=== PATIENT | female | born 1965 | race Caucasian/White ===

== ENCOUNTER 2017-10-24 15:41 | Emergency (ER) | payer OTHER ==
--- NOTE | 2017-10-24 16:01 | EDPHY ---
H & P Stated Complaint: r back and generalized abd pain HPI/ROS: CHIEF COMPLAINT: Right back and abdominal pain HISTORY OF PRESENT ILLNESS: The patient is an anticoagulated 51 y/o female with a history of a brain aneurysm s/p coiling with current anticoagulation on aspirin and Plavix, appendectomy, and hysterectomy, complaining of sudden onset right back pain that is radiating to her abdomen; onset at 15:00, 1 hour ago. This pain began while she was working at her desk. She 1st noted pain in the right flank region followed by diffuse lower abdominal pain that is now localized in the right lower abdomen. The pain is severe, a constant aching sensation. Her last bowel movement was this morning. She has not had diarrhea or constipation. Last PO was 15:00, 1 hour ago. Denies history of kidney stones. She has not had hematuria, dysuria, urgency, or frequency. Denies blood in stool, urinary complaints, fever, chest pain, shortness of breath, midline back pain, paresthesias or other pertinent symptoms. REVIEW OF SYSTEMS: A ten point review of systems was performed and is negative with the exception of the items mentioned in the HPI. Past medical history: 1. Brain aneurysm Past surgical history: 1. Hysterectomy, cervix and ovaries retained 2. Appendectomy 3. Breast augmentation 4. Status post coiling of brain aneurysm Family history: Denies Social history: at bedside, lives in [place], former smoker General Appearance: Alert. Uncomfortable lying in bed. Vital signs reviewed. Blood pressure 123/94. Afebrile. Eyes: Pupils equal and round, no conjunctival injection, no discharge. Anicteric. ENT, Mouth: Mucous membranes are moist, no oropharyngeal erythema or edema. Neck: No lymphadenopathy, supple. Respiratory: Lungs are clear to auscultation; no wheezes, rales, or rhonchi. Cardiovascular: Regular rate and rhythm; no murmur, rub, or gallop. Gastrointestinal: RLQ tenderness with guarding. Abdomen is obese, soft, no appreciable masses or organomegaly, bowel sounds normal. Skin: Warm and dry, no rashes on exposed skin, normal color. Back: Nontender to palpation over the thoracolumbar spine. No CVAT. Extremities: No lower extremity edema, no calf tenderness or swelling. Neurological: Alert and oriented. Moving all four extremities easily and equally. Psychiatric: Normal affect. - Personal History LMP (Females 10-55): Hysterectomy Current Tetanus/Diphtheria Vaccine: Unsure - Medical/Surgical History Hx Asthma: No Hx Chronic Respiratory Disease: No Hx Diabetes: No Hx Cardiac Disease: No Hx Renal Disease: No Hx Cirrhosis: No Hx Alcoholism: No Hx HIV/AIDS: No Hx Splenectomy or Spleen Trauma: No Other PMH: aneurysm/hysterectomy - Social History Smoking Status: Former smoker Constitutional: Initial Vital Signs Temperature (C) 36.4 C 10/24/17 15:45 Heart Rate 77 10/24/17 15:45 Respiratory Rate 18 10/24/17 15:45 Blood Pressure 123/94 H 10/24/17 15:45 O2 Sat (%) 98 10/24/17 15:45 O2 Delivery Mode Room Air O2 (L/minute) 2 Allergies/Adverse Reactions: codeine Allergy (Verified 10/24/17 15:44) Home Medications: Medication Instructions Recorded ASPIRIN 10/24/17 Lisinopril 10/24/17 Ondansetron Odt [Zofran Odt 4 mg 4 mg PO Q4 PRN #20 tab 10/24/17 (*)] Ondansetron Odt [Zofran Odt 4 mg 4 mg PO Q4 PRN #10 tab 10/24/17 (RX)] Plavix 10/24/17 oxyCODONE HCL/ACETAMINOPHEN 1 - 2 each PO Q6 PRN #20 tablet 10/24/17 [Percocet 5-325 mg Tablet] Medical Decision Making - Diagnostics Imaging: Discussed imaging studies w/ terrazzo mechanic helper Radiologist, I viewed and interpreted images myself ED Course/Re-evaluation: The patient is an anticoagulated 51 y/o female with a history of an appendectomy , presenting with right back and abdominal pain, sudden onset at 15:00, 1 hour ago. My initial suspicion was for kidney stone. Abdominopelvic CT ordered. 100mcg IV Fentanyl, 4mg IV Zofran, and 1L IV NS administered. 1647: Spoke with radiologist regarding patient's AP CT, there are no kidney or ureteral stones visualized. There is an enlarged right ovary with what appears to be hemorrhagic cyst rupture. Pelvic US ordered to further characterize. Fatty liver and liver lesions also noted. 1657: Reassessed patient and discussed CT findings. She is comfortable with plan for US. She continues with right lower quadrant tenderness and guarding. She also has some suprapubic and left lower quadrant tenderness that is not as severe as the pain she is experiencing on her right. 1718: 6mg IV Morphine administered. 1740: Spoke with radiologist regarding US; the ovaries cannot be visualized. Will try trans abdominal ultrasound. POOLROOM TABLE ATTENDANT will be consulted. 1755: Spoke with radiologist, there is a probable ruptured right ovarian cyst. No torsion identified. POOLROOM TABLE ATTENDANT consult pending. 1757: Reassessed patient and discussed US findings. Her pain was briefly relieved after Morphine. On exam she has continued right lower quadrant tenderness, no guarding at this time Additional 4mg IV Morphine and 4mg IV Zofran administered. 2020: Consulted with Dr. Dillard regarding this patient. He has evaluated her in the emergency department. He has reviewed with her the options for treatment of what is a presumed ruptured ovarian cyst. She has been offered hospitalization for observation. He discussed a surgical option with her also. She feels comfortable returning home at this point. She plans to follow up with her [place] physician and Dr. Dillard will be contacting that physician Patient is safe to go home with pain management. Close follow-up is advised, as she is anticoagulated and this appears to be a hemorrhagic cyst. She is hemodynamically stable in the emergency department. Her pain is improved. On examination she has no peritoneal signs. She continues with right lower quadrant tenderness. She is given a copy of her radiographic studies. She has been informed about the liver abnormalities and understands that further evaluation is recommended. 8: Reassessed patient and discussed plan for follow up with her POOLROOM TABLE ATTENDANT in the next week. Return precautions provided; patient is comfortable with this plan. Differential Diagnosis: I considered a differential diagnosis that includes but is not limited to ruptured ovarian cyst, ovarian torsion, bowel obstruction, ureterolithiasis, urinary tract infection, and pyelonephritis. - Data Points Laboratory Results: Laboratory Results 10/24/17 13:44 10/24/17 13:44 Medications Given: Discontinued Medications Fentanyl (Sublimaze) 100 mcg IVP EDNOW ONE Stop: 10/24/17 16:53 Last Admin: 10/24/17 16:50 Dose: 100 mcg Sodium Chloride (Ns) 1,000 mls @ 0 mls/hr IV ONCE ONE PRN Reason: Wide Open Stop: 10/24/17 16:52 Last Admin: 10/24/17 16:35 Dose: 1,000 mls Morphine Sulfate (Morphine) 6 mg IVP EDNOW ONE Stop: 10/24/17 17:18 Last Admin: 10/24/17 17:27 Dose: 6 mg Morphine Sulfate (Morphine) 4 mg IVP EDNOW ONE Stop: 10/24/17 18:03 Last Admin: 10/24/17 18:17 Dose: 4 mg Ondansetron HCl (Zofran) 4 mg IVP EDNOW ONE Stop: 10/24/17 16:52 Last Admin: 10/24/17 16:30 Dose: 4 mg Ondansetron HCl (Zofran) 4 mg IVP EDNOW ONE Stop: 10/24/17 18:25 Last Admin: 10/24/17 18:25 Dose: 4 mg Ondansetron HCl (Zofran Odt 4 Mg Prepack#2) 1 btl TAKEHOME EDNOW ONE Stop: 10/24/17 20:56 Last Admin: 10/24/17 20:59 Dose: 1 btl Ondansetron HCl (Zofran Odt) 4 mg PO EDNOW ONE Stop: 10/24/17 21:03 Last Admin: 10/24/17 21:03 Dose: 4 mg Oxycodone/Acetaminophen (Percocet 5/325mg Prepack#4) 1 btl TAKEHOME EDNOW ONE Stop: 10/24/17 20:55 Last Admin: 10/24/17 20:59 Dose: 1 btl Departure - Departure Disposition: Home, Routine, Self-Care Clinical Impression: Ovarian cyst rupture Ovarian cyst Qualifiers: Laterality: right Qualified Code(s): N83.201 - Unspecified ovarian cyst, right side Condition: Good Instructions: Oxycodone/Acetaminophen (By mouth), Ondansetron (By mouth), Ovarian Cyst (ED), Ruptured Ovarian Cyst (ED) Additional Instructions: Take Percocet as prescribed. Follow up with your POOLROOM TABLE ATTENDANT in the next week. Return to the ED if you experience chest pain, shortness of breath, fevers, urinary or bowel complaints or other worsening of your symptoms. Referrals: KAREN URBINA [Other] - As per Instructions Mukul Dillard MD [Medical Doctor] - As per Instructions Prescriptions: Ondansetron Odt [Zofran Odt 4 mg (RX)] 4 mg PO Q4 PRN #10 tab PRN Reason: nausea Ondansetron Odt [Zofran Odt 4 mg (*)] 4 mg PO Q4 PRN #20 tab PRN Reason: Nausea/Vomiting, Use 1st oxyCODONE HCL/ACETAMINOPHEN [Percocet 5-325 mg Tablet] 1 - 2 each PO Q6 PRN #20 tablet PRN Reason: Pain, Breakthrough Report Scribed for: Laura Aldana Report Scribed by: Juana Rodríguez Date of Report: 10/24/17 Time of Report: 16:13 Physician Review and Approval Statement: 10/24/17 16:01 Portions of this note were transcribed by the medical dir. I, Dr. Laura Aldana, personally performed the history, physical exam, and medical decision- making; and confirmed the accuracy of the information in the transcribed note.
[2017-10-24] MEDS ORDERED: ONDANSETRON 4 MG/2 ML VIAL ONE (16:14)
[2017-10-24] MEDS ORDERED: fentaNYL 100 MCG/2 ML INJ ONE (16:14)
[2017-10-24 16:30] LABS: PLATELET COUNT 359 10^3/uL (150-400)
[2017-10-24] MEDS ORDERED: NS 1,000 ML IV ONE (16:51)
[2017-10-24] MEDS ORDERED: ONDANSETRON 4 MG/2 ML VIAL IVP ONE ×2 (16:51→18:24)
[2017-10-24] MEDS ORDERED: fentaNYL 100 MCG/2 ML INJ IVP ONE (16:52)
[2017-10-24 18:21] VITALS: RESP 16
[2017-10-24] MEDS ORDERED: ONDANSETRON 4MG PREPACK#2 BTL TAKEHOME ONE ×2 (20:44→20:55)
[2017-10-24] MEDS ORDERED: OXYCODONE/APAP 5/325MG PREPACK#4 BTL TAKEHOME ONE ×2 (20:44→20:54)
--- NOTE | 2017-10-24 20:46 | PDCONSULT ---
Tooling Mechanic Note: Subjective: 51 yo female presented to the ED earlier this afternoon with acute diffuse abdominal pain that began as she was sitting at work this afternoon. Pain began to bother her lower back, got up and was feeling nauseous then and was developing diffuse abdominal pain as she was getting ready to drive herself home. Ended up not feeling comfortable driving due to pain and called partner to come get her and bring her to ER for evaluation. She is s/p LS supracervical hysterectomy years ago with ovaries still in place. She has no h/ o ovarian cysts, ruptured or otherwise in the past. She is currently on ASA and Plavix therapy related to recent brain surgery/stent placement for cerebral aneurysm. Objective: Temp Pulse Resp BP Pulse Ox 36.4 C 87 16 135/69 H 95 10/24/17 15:45 10/24/17 18:00 10/24/17 18:00 10/24/17 18:00 10/24/17 18:00 O2 (L/minute) 2 10/24/17 13:44 10/24/17 13:44 Total Bilirubin 0.2 mg/dL (0.1-1.4) 10/24/17 13:44 Conjugated Bilirubin 0.2 mg/dL (0.0-0.5) 10/24/17 13:44 Unconjugated Bilirubin 0.0 mg/dL (0.0-1.1) 10/24/17 13:44 AST 20 IU/L (14-46) 10/24/17 13:44 ALT 33 IU/L (9-52) 10/24/17 13:44 WBC 13.66 10^3/uL (3.80-9.50) H 10/24/17 13:44 RBC 4.39 10^6/uL (4.18-5.33) 10/24/17 13:44 Hgb 12.5 g/dL (12.6-16.3) L 10/24/17 13:44 Hct 37.1 % (38.0-47.0) L 10/24/17 13:44 MCV 84.5 fL (81.5-99.8) 10/24/17 13:44 MCH 28.5 pg (27.9-34.1) 10/24/17 13:44 MCHC 33.7 g/dL (32.4-36.7) 10/24/17 13:44 RDW 13.7 % (11.5-15.2) 10/24/17 13:44 Plt Count 359 10^3/uL (150-400) 10/24/17 13:44 MPV 9.2 fL (8.7-11.7) 10/24/17 13:44 Neut % (Auto) 68.0 % (39.3-74.2) 10/24/17 13:44 Lymph % (Auto) 25.0 % (15.0-45.0) 10/24/17 13:44 Mcnairy % (Auto) 5.2 % (4.5-13.0) 10/24/17 13:44 Eos % (Auto) 0.9 % (0.6-7.6) 10/24/17 13:44 Baso % (Auto) 0.5 % (0.3-1.7) 10/24/17 13:44 Nucleat RBC Rel Count 0.0 % (0.0-0.2) 10/24/17 13:44 Absolute Neuts (auto) 9.28 10^3/uL (1.70-6.50) H 10/24/17 13:44 Absolute Lymphs (auto) 3.42 10^3/uL (1.00-3.00) H 10/24/17 13:44 Absolute Monos (auto) 0.71 10^3/uL (0.30-0.80) 10/24/17 13:44 Absolute Eos (auto) 0.12 10^3/uL (0.03-0.40) 10/24/17 13:44 Absolute Basos (auto) 0.07 10^3/uL (0.02-0.10) 10/24/17 13:44 Absolute Nucleated RBC 0.00 10^3/uL (0-0.01) 10/24/17 13:44 Immature Gran % 0.4 % (0.0-1.1) 10/24/17 13:44 Immature Gran # 0.06 10^3/uL (0.00-0.10) 10/24/17 13:44 Sodium 141 mEq/L (135-145) 10/24/17 13:44 Potassium 3.5 mEq/L (3.5-5.2) 10/24/17 13:44 Chloride 103 mEq/L (97-110) 10/24/17 13:44 Carbon Dioxide 23 mEq/l (22-31) 10/24/17 13:44 Anion Gap 15 mEq/L (8-16) 10/24/17 13:44 BUN 9 mg/dL (7-23) 10/24/17 13:44 Creatinine 0.9 mg/dL (0.6-1.0) 10/24/17 13:44 Estimated GFR > 60 10/24/17 13:44 Glucose 114 mg/dL (70-100) H 10/24/17 13:44 Calcium 9.4 mg/dL (8.5-10.4) 10/24/17 13:44 Total Bilirubin 0.2 mg/dL (0.1-1.4) 10/24/17 13:44 Conjugated Bilirubin 0.2 mg/dL (0.0-0.5) 10/24/17 13:44 Unconjugated Bilirubin 0.0 mg/dL (0.0-1.1) 10/24/17 13:44 AST 20 IU/L (14-46) 10/24/17 13:44 ALT 33 IU/L (9-52) 10/24/17 13:44 Alkaline Phosphatase 88 IU/L (38-126) 10/24/17 13:44 Total Protein 6.4 g/dL (6.3-8.2) 10/24/17 13:44 Albumin 3.9 g/dL (3.5-5.0) 10/24/17 13:44 Lipase 147 IU/L (23-300) 10/24/17 13:44 Exam: Gen: Alert, oriented, appears mildly uncomfortable. Belly is soft, minimally distended, non tender to palpation in upper quadrants and mildly tender in lower quadrants R>L. No rebound, mild guarding on the lower R side. Imaging: Imaging Impressions Abdomen/Pelvis CT 10/24/17 16:24 Impression: 1. No hydronephrosis or obstructing ureteral calculi. Left nephrolithiasis. 2. Hepatic steatosis, with several indeterminate dense lesions in the right lobe and adjacent to the gallbladder, which may represent focal fatty sparing or true liver lesions. Recommend MRI of the abdomen, without and with IV contrast, to optimally characterize. 3. Cholelithiasis. No CT features of acute cholecystitis. 4. Enlarged cystic right ovary may represent hemorrhagic cyst and may be etiology for pain and free fluid in the pelvis. The right ovary is enlarged for perimenopausal age. Recommend follow up to exclude underlying cystic neoplasm. Findings discussed with Emergency Department physician, Mayi Williamson M.D., on October 24, 2017 at 1650. Attention: This CT examination is specifically designed to evaluate patients who are clinically suspected of having acute obstructive uropathy. This examination does not use radiographic contrast, and as such, provides only a limited evaluation of the abdomen, pelvis, and retroperitoneum. If there is further clinical suspicion for pathological conditions other than obstructive uropathy, a complete CT evaluation of the abdomen and pelvis utilizing intravenous, oral, and rectal contrast should be considered. Pelvic/Renal Ultrasound 10/24/17 16:47 Impression: 1. Status post cervix-sparing hysterectomy. 2. Nonvisualization of the ovaries by transabdominal and endovaginal protocols. Regarding the previously-seen right adnexal complex cystic mass with an hematocrit level on the CT scan, gynecologic consultation and correlation with a serum CA-125 level is suggested. If there is further clinical concern at that point, contrast-enhanced MR imaging could be considered. 3. Small amount of free fluid in the pelvic cul-de-sac, which is nonspecific but could represent rupture of an ovarian cyst. Findings were discussed with MAYI WILLIAMSON MD at 17:37, on 10/24/2017. Assessment & Plan: Ruptured right hemorrhagic ovarian cyst vs Intermittent torsion of the right ovary I reviewed this patients presentation, labs, and imaging with Dr. Williamson. I had a long discussion with the patient and her partner about this pain and possible etiologies. She does have a ~4.5cm cyst on that right ovary - visualized on CT as well as US. Difficult for US techs to get adequate visualization of either ovary due to the patient's habitus. From those scans it looks like there is layering of material within the cyst to suggest hemorrhagic in nature, and then at least some (small currently) volume of likely blood/cyst fluid within the pelvis. This would suggest ruptured ovarian cyst as primary etiology -- her description of diffuse abdominal pain, bloating , and nausea also lines up with this. Discussed whether or not her ASA and Plavix would be contributing to that situation, which is possible, but unclear. They were able to get good visualization of patent flow to that right ovary, so they do feel that at least from that evaluation that the ovary is not torsed. Intermittent torsion is possible, and we discussed that entity. We discussed options for management going forward. If felt to be ruptured ovarian cyst I offered her inpatient observation with monitoring and pain control. I counseled her that if we're able to control her pain and nausea that it would be reasonable for her to go home with oral medications as long as we had a plan for close outpatient follow-up with imaging at the end of this week to evaluate that cyst and look for signs of further blood accumulation. I offered to see her in my clinic at [facility] but she has [employer] insurance, so she will need to touch base with her PCP PIETRO tomorrow potentially for referral to [facility]. If that will be the plan I did give her precautions for how/when to return for evaluation if uncontrolled pain or s/sx of ongoing blood loss. We also discussed the idea of going to the OR tonight for (at least) diagnostic laparoscopy and potentially treatment of ovarian cyst and/or torsion. If torsion were the etiology we would be able to address that intraoperatively, if cyst rupture then could address that cyst and what seems like very small hemoperitoneum. That surgery does come with risk given that she's currently on dual antiplatelet therapy. We discussed risks/benefits of either course - observation vs OR, and she would prefer observation with close outpatient surveillance, and I think that is a reasonable plan. I will try to fax this note PIETRO to her primary care provider. Scripts given for Percocet and Zofran. She needs to avoid NSAIDS due to her ASA and Plavix therapy. Mukul Dillard MD OBGYN
[2017-10-24] MEDS ORDERED: ONDANSETRON DISINTEGRATING 4 MG TAB ONE (21:01)
[2017-10-24] MEDS ORDERED: ONDANSETRON DISINTEGRATING 4 MG TAB PO ONE (21:02)
[2017-10-24 21:10] VITALS: BP 121/73; PULSE 80; TEMP 98.2; O2SAT 92
== END 2017-10-24 21:10 | disposition home or self-care (01) ==
DX: N83.201 Unspecified ovarian cyst, right side (principal); Z79.82 Long term (current) use of aspirin; Z87.891 Personal history of nicotine dependence; Z90.49 Acquired absence of other specified parts of digestive tract
CPT/HCPCS: 96374; J2405; J3010

== ENCOUNTER 2017-11-01 14:10 | Observation (INO) | payer OTHER ==
--- NOTE | 2017-11-01 14:21 | EDPHY ---
HPI/HX/ROS/PE/MDM Narrative: CHIEF COMPLAINT: Lip swelling, on Lisinopril HISTORY OF PRESENT ILLNESS: The patient is an anticoagulated (Plavix) 51 y/o female, currently on Lisinopril with a history of a cerebral aneurysm complaining of a worsening swollen upper lip since 11:30, 3 hours ago. She took 50mg Benadryl without relief of her symptoms. Admits to eating strawberries, kiwis, and a peanut butter sandwich today; she has not had problems with these foods before. 4 years ago she had similar symptoms, but did not receive medical treatment at this time; at this time she was also on Lisinopril. Her symptoms today have a faster onset than 4 years ago. She is currently itchy all over. Denies itching or tingling in throat, rash, or shortness of breath. No fever, chills, chest pain, shortness of breath, palpitations, vomiting, diarrhea, urinary complaints, headache, lightheadedness. REVIEW OF SYSTEMS: Aside from elements discussed in the HPI, a comprehensive 10-point review of systems was reviewed and is negative. PAST MEDICAL HISTORY: Hysterectomy, appendectomy, breast augmentation, post- coiling of brain aneurysm, ovarian cyst SOCIAL HISTORY: Lives in [place], former smoker, at bedside VITAL SIGNS: BP: 159/95, HR: 105, others reviewed by me GENERAL: Well-developed, well-nourished, resting comfortably in no respiratory distress. HEENT: Atraumatic. Eyes: No icterus, no injection. Mouth: Swelling of upper lip , primarily on the left side with minimal extension across the midline. No tongue, lower lip, or uvula swelling. Moist mucous membranes. No erythema or lesions. Neck: supple with no adenopathy. No stridor. LUNGS: Clear to auscultation bilaterally, no wheezes, rhonchi or rales. CARDIAC: Regular rate and rhythm, no rubs, murmurs or gallops. ABDOMEN: Soft, nontender, nondistended, bowel sounds normal. BACK: No CVA tenderness. EXTREMITIES: No trauma. No edema. Range of motion is normal throughout. NEURO: Alert and oriented, grossly nonfocal. SKIN: Warm and dry, no rash. No urticaria. PSYCHIATRIC: Normal mentation, no agitation. Portions of this note were transcribed by a medical director occupational health. I personally performed a history, physical exam, medical decision making, and confirmed accuracy of information the transcribed note. ED Course: The patient is an anticoagulated (Plavix) 51 y/o female, currently on Lisinopril (1 year) with a history of a cerebral aneurysm presenting with a worsening swollen upper lip since 11:30, 3 hours ago. On exam, the swelling of her upper lip is primarily on the left side and with some extension across midline. No tongue, lower lip, or uvula swelling. No shortness of breath or rash. 125mg IV Solu-medrol and 50mg IV Zantac administered. She has taken benadryl at home. 1545: Reassessed patient, the edema is worse and is now more across the midline and more on the right. 0.3mg IM Epinephrine administered. 1738: Reassessed patient, she is not feeling improved after epinephrine. Her swelling is now across the entire upper lip. I recommend admisstion to hospital until her angioedema is resolving instead of worsening. Patient understand and is in agreement. 1750: Spoke with hospitalist service, Dr. Gonzalez accepts admission of this patient. MDM: Diff dx considered included angioedema associated with deven inhibitors, allergic reaction, food allergy, hereditary angioedema, local reaction. - Data Points Medications Given: Discontinued Medications Aspirin Buffered (Aspirin Ec) 325 mg PO DAILY COUNT INCLUDES THE [facility] Stop: 05/01/18 09:44 Last Admin: 11/02/17 09:46 Dose: 325 mg Clopidogrel Bisulfate (Plavix) 75 mg PO DAILY [facility] Stop: 05/01/18 09:44 Last Admin: 11/02/17 09:46 Dose: 75 mg Diphenhydramine HCl (Benadryl Injection) 25 mg IVP Q6HRS [facility] Stop: 05/01/18 00:00 Last Admin: 11/02/17 05:15 Dose: 25 mg Epinephrine HCl (Epinephrine) 0.3 mg IM EDNOW ONE Stop: 11/01/17 15:46 Last Admin: 11/01/17 16:10 Dose: 0.3 mg Methylprednisolone Sodium Succinate (Solu-Medrol) 125 mg IVP EDNOW ONE Stop: 11/01/17 14:36 Last Admin: 11/01/17 14:42 Dose: 125 mg Methylprednisolone Sodium Succinate (Solu-Medrol) 60 mg IVP Q6HRS COUNT INCLUDES THE [facility] Stop: 05/01/18 00:00 Last Admin: 11/02/17 05:15 Dose: 60 mg Ranitidine HCl (Zantac) 50 mg IVP EDNOW ONE Stop: 11/01/17 14:36 Last Admin: 11/01/17 14:42 Dose: 50 mg General Time Seen by Provider: 11/01/17 14:19 Initial Vital Signs: Initial Vital Signs Temperature (C) 36.6 C 11/01/17 14:14 Heart Rate 105 H 11/01/17 14:14 Respiratory Rate 16 11/01/17 14:14 Blood Pressure 159/95 H 11/01/17 14:14 O2 Sat (%) 97 11/01/17 14:14 O2 Delivery Mode Room Air Allergies/Adverse Reactions: hydrocodone [From Vicodin] Allergy (Intermediate, Verified 11/01/17 18:33) Swelling/neck,face,throat lisinopril Allergy (Unknown, Verified 11/02/17 10:55) POSSABLE ANGIOEDEMA Home Medications: Medication Instructions Recorded Aspirin EC [Aspirin EC 325 mg (*)] 325 mg PO DAILY 10/24/17 Clopidogrel Bisulfate [Plavix (*)] 75 mg PO DAILY 10/24/17 diphenhydrAMINE [Benadryl 25 MG 50 mg PO DAILY PRN 11/01/17 (*)] Departure - Departure Disposition: [facility] Inpatient Acute Clinical Impression: Angioedema Qualifiers: Encounter type: initial encounter Qualified Code(s): T78.3XXA - Angioneurotic edema, initial encounter Condition: Fair Report Scribed for: Sheree Dailey Report Scribed by: Juana Rodríguez Date of Report: 11/01/17 Time of Report: 14:21
[2017-11-01] MEDS ORDERED: methylPREDNISolone SOD SUCC 125 MG/2 ML VIAL IVP ONE (14:35)
[2017-11-01] MEDS ORDERED: RANITIDINE 50 MG/2 ML VIAL IVP ONE (14:35)
[2017-11-01 18:25] LABS: PLATELET COUNT 471 10^3/uL (150-400)
[2017-11-01] MEDS ORDERED: ONDANSETRON 4 MG/2 ML VIAL IVP PRN (19:33)
[2017-11-01] MEDS ORDERED: ACETAMINOPHEN 325 MG TAB PO PRN (19:33)
[2017-11-01] MEDS ORDERED: ONDANSETRON DISINTEGRATING 4 MG TAB PO PRN (19:33)
[2017-11-01] MEDS ORDERED: ALBUTEROL 3 ML DEYVIAL IH PRN (19:33)
--- NOTE | 2017-11-01 20:16 | PDGENHP ---
History and Physical - Chief Complaint lip swelling - History of Present Illness 51 yo female with hx of HTN who is on Lisinopril started to have left sided lip swelling around 11 a.m as well as generalized itching this morning while at work. She had eaten strawberry and [employer] that morning but has eaten them before w/o problem. She took Benadryl w/o improvement and therefore presented to the E.D. where she was given Epi, IV steroids, H1 and H2 blockers. Her swelling actually became worse in the E.D. and per report started to cross the midline. There were no resp sx's. There was no pharynx or tongue involvement. She had a similar episode several years ago and she was on lisinopril at that time which was stopped as a result. This was eventually restarted about a year ago and she has done well until this event. No fever, chills, chest pain, shortness of breath, palpitations, vomiting, diarrhea, urinary complaints, headache, lightheadedness. PAST MEDICAL HISTORY: Hysterectomy, appendectomy, breast augmentation, post- coiling of brain aneurysm, ovarian cyst SOCIAL HISTORY: Lives in [place], former smoker, at bedside FMx: [place] History Information - Allergies/Home Medication List Allergies/Adverse Reactions: hydrocodone [From Vicodin] Allergy (Intermediate, Verified 11/01/17 18:33) Swelling/neck,face,throat Home Medications: Aspirin EC [Aspirin EC 325 mg (*)] 325 mg PO DAILY 10/24/17 [Last Taken 08:00] Clopidogrel Bisulfate [Plavix (*)] 75 mg PO DAILY 10/24/17 [Last Taken 11/01/17 08:00] Lisinopril/Hctz 10/12.5 mg [Zestoretic/Prinzide 10/12.5MG (*)] 1 ea PO DAILY [Last Taken 11/01/17 08:00] diphenhydrAMINE [Benadryl 25 MG (*)] 50 mg PO DAILY PRN 11/01/17 [Last Taken 10/18 12:00] I have personally reviewed and updated: medical history, social history - Social History Smoking Status: Former smoker Review of Systems Review of Systems: ROS: 10pt was reviewed & negative except for what was stated in HPI & below Physical Exam Physical Exam: Temp Pulse Resp BP Pulse Ox 37 C 84 16 112/78 91 L 11/01/17 18:10 11/01/17 19:45 11/01/17 19:45 11/01/17 19:45 11/01/17 19:45 Constitutional: no apparent distress, appears nourished Eyes: PERRL, EOMI Ears, Nose, Mouth, Throat: moist mucous membranes, other (there is swelling around the left lower lip. No pharynx or throat involvement) Cardiovascular: regular rate and rhythym, No edema Respiratory: no respiratory distress, no rales or rhonchi Gastrointestinal: normoactive bowel sounds, No distension Skin: warm Musculoskeletal: full muscle strength Neurologic: AAOx3 Psychiatric: interacting appropriately, not anxious, not encephalopathic, thought process linear Lymph, Heme, Immunologic: No petechiae Lab Data & Imaging Review 11/01/17 18:15 11/01/17 18:15 WBC 14.93 10^3/uL (3.80-9.50) H 11/01/17 18:15 RBC 4.41 10^6/uL (4.18-5.33) 11/01/17 18:15 Hgb 12.3 g/dL (12.6-16.3) L 11/01/17 18:15 Hct 36.2 % (38.0-47.0) L 11/01/17 18:15 MCV 82.1 fL (81.5-99.8) 11/01/17 18:15 MCH 27.9 pg (27.9-34.1) 11/01/17 18:15 MCHC 34.0 g/dL (32.4-36.7) 11/01/17 18:15 RDW 13.7 % (11.5-15.2) 11/01/17 18:15 Plt Count 471 10^3/uL (150-400) H 11/01/17 18:15 MPV 8.8 fL (8.7-11.7) 11/01/17 18:15 Neut % (Auto) 93.0 % (39.3-74.2) H 11/01/17 18:15 Lymph % (Auto) 5.3 % (15.0-45.0) L 11/01/17 18:15 [place]ila % (Auto) 0.7 % (4.5-13.0) L 11/01/17 18:15 Eos % (Auto) 0.1 % (0.6-7.6) L 11/01/17 18:15 Baso % (Auto) 0.4 % (0.3-1.7) 11/01/17 18:15 Nucleat RBC Rel Count 0.0 % (0.0-0.2) 11/01/17 18:15 Absolute Neuts (auto) 13.90 10^3/uL (1.70-6.50) H 11/01/17 18:15 Absolute Lymphs (auto) 0.79 10^3/uL (1.00-3.00) L 11/01/17 18:15 Absolute Monos (auto) 0.10 10^3/uL (0.30-0.80) L 11/01/17 18:15 Absolute Eos (auto) 0.01 10^3/uL (0.03-0.40) L 11/01/17 18:15 Absolute Basos (auto) 0.06 10^3/uL (0.02-0.10) 11/01/17 18:15 Absolute Nucleated RBC 0.00 10^3/uL (0-0.01) 11/01/17 18:15 Immature Gran % 0.5 % (0.0-1.1) 11/01/17 18:15 Immature Gran # 0.07 10^3/uL (0.00-0.10) 11/01/17 18:15 Sodium 139 mEq/L (135-145) 11/01/17 18:15 Potassium 3.8 mEq/L (3.5-5.2) 11/01/17 18:15 Chloride 103 mEq/L (97-110) 11/01/17 18:15 Carbon Dioxide 23 mEq/l (22-31) 11/01/17 18:15 Anion Gap 13 mEq/L (8-16) 11/01/17 18:15 BUN 10 mg/dL (7-23) 11/01/17 18:15 Creatinine 0.9 mg/dL (0.6-1.0) 11/01/17 18:15 Estimated GFR > 60 11/01/17 18:15 Glucose 161 mg/dL (70-100) H 11/01/17 18:15 Calcium 9.3 mg/dL (8.5-10.4) 11/01/17 18:15 Assessment & Plan Assessment: #Angioedema involving the lips. No resp issues. Appears to be improving #HTN #Pruritus #Cough, intermittent Plan: Her lip swelling appears to be improving but she is still at high risk given the location. She does not have any resp sxs or pharyngeal or tongue involvement She will be admitted under observation status. The pruritus would argue against JAVY Induced angioedema, but would have expected faster improvement of sx's with the EPI She is also concerned that the JAVY-I has caused a cough We will hold Lisinopril monitor BP and determine an alternative agent to start if needed Wright schedule IV steroids, H1/H2 ban Total critical care time including discussion with the ER physician is 60 minutes
[2017-11-01] MEDS ORDERED: FAMOTIDINE 20 MG/NACL 50 ML IV SCH (21:00)
[2017-11-02] MEDS: methylPREDNISolone SOD SUCC 125 MG/2 ML VIAL IVP SCH ×2 (00:04→05:15)
[2017-11-02 00:36] VITALS: RESP 16; TEMP 97.9
[2017-11-02 05:32] LABS: PLATELET COUNT 486 10^3/uL (150-400)
[2017-11-02 07:30] VITALS: BP 112/63; PULSE 83; O2SAT 90
[2017-11-02] MEDS ORDERED: ASPIRIN EC 325 MG TAB PO SCH (09:45)
[2017-11-02] MEDS ORDERED: CLOPIDOGREL BISULFATE 75 MG TAB PO ONE (09:45)
[2017-11-02] MEDS ORDERED: ASPIRIN EC 325 MG TAB PO ONE (09:45)
[2017-11-02] MEDS ORDERED: CLOPIDOGREL BISULFATE 75 MG TAB PO SCH (09:45)
--- NOTE | 2017-11-02 11:55 | PDDCSUM ---
Discharge Summary Discharge Summary: The pt is a 51 yo female who was admitted with angioedema of the lip of unclear cause. She was on Lisinopril and JAVY-I associated angioedema was a concern. However she also had generalized pruritus which would argue against this. She also c/o a cough which she attributes to the JAVY-I. Therefore, Lisinopril has been stopped and this has been put on her allergy list. She was treated with steroids and antihistamine which has resolved her sxs. She had lip involvement, but no other involvement including pharynx or tongue. She had no resp sx's. She has not been started on any further BP meds as her BP has been below 120's systolic DDX: #Angioedema involving the lips. #HTN #Pruritus #Cough, intermittent Exam: NAD AAOX3 PEERL, EOMI LIPS WITH NO VISIBLE SWELLING OROPHARYNX CLEAR RRR CTA B NO LE EDEMA DC MEDS: SEE MED REC LIST F/U: WITH PCP TODAY TOTAL TIME SPENT ON DC IS 35 MINS
== END 2017-11-02 12:15 | disposition home or self-care (01) ==
LOC: F2N 20:25
PROVIDERS: ADMIT Family Medicine; ATTEND Family Medicine
DX: T78.3XXA Angioneurotic edema, initial encounter (principal); Z87.891 Personal history of nicotine dependence
CPT/HCPCS: G0378 ×2; 96374; J0171; J1200; J2780; J2930